=== PATIENT | male | born 1965 ===

== ENCOUNTER 2023-06-01 10:53 | Day surgery (SDC) | payer BC ==
[2023-05-26 11:46] VITALS: BMI 28.1
[~2023-06-01 10:53] MED LIST: LIDOCAINE 1% (10MG/ML) FOR IV START INTRADERMA PRN
[2023-06-01] MEDS: LACTATED RINGERS 1,000 ML IV SCH ×2 (12:11→13:16)
[2023-06-01 12:14] VITALS: TEMP 97.1
[2023-06-01 12:24] LABS: Glucose,Whole Blood 92 mg/dL (70-110)
[2023-06-01] MEDS ORDERED: PROPOFOL 10 MG/ML 20 ML VIAL IV ONE (13:13)
--- NOTE | 2023-06-01 13:35 | P.PCN ---
Date of Procedure: 06/01/23 Procedure(s) Performed: BRIEF HISTORY: Patient is a 58-year-old pleasant white male scheduled for an elective colonoscopy as a part of evaluation of prior history of colon polyps. PROCEDURE PERFORMED: Colonoscopy. PREOPERATIVE DIAGNOSIS: History of colon polyps. IV sedation per Anesthesia. PROCEDURE: After informed consent was obtained, the patient, was brought into the endoscopy unit. IV sedation was administered by Anesthesia under continuous monitoring. Digital rectal examination was normal. Initially the Olympus CF-160 flexible video colonoscope was then inserted in the rectum, gradually advanced into the right colon without any difficulty. Despite multiple attempts I was not able to advance the scope into the base of the cecum but part of the cecum was visualized and appeared normal. Careful examination was performed as the scope was gradually being withdrawn. Ileocecal valve was Prep was excellent. Mucosa of the ascending colon, transverse colon, descending colon, sigmoid colon, and rectum appeared normal. Scattered sigmoid diverticulosis. Retroflexion was performed in the rectum and no lesions were seen. The patient tolerated the procedure well. IMPRESSION: Normal-appearing colon from rectum to cecum with no evidence of colorectal neoplasia. Scattered similar diverticulosis. RECOMMENDATIONS: Findings of this examination were discussed with the patient as well as his family. He was advised to have a repeat screening colonoscopy in 10 years..
[2023-06-01 13:54] VITALS: BP 124/77; PULSE 61; RESP 20
== END 2023-06-01 14:09 ==
LOC: ORWHC2ENDO 10:53
PROVIDERS: ATTEND Internal Medicine Gastroenterology
DX: Z12.11 Encounter for screening for malignant neoplasm of colon (principal); K57.30 Diverticulosis of large intestine without perforation or abscess without bleeding; J45.909 Unspecified asthma, uncomplicated; Z86.010 Personal history of colon polyps; Z79.899 Other long term (current) drug therapy; Z79.82 Long term (current) use of aspirin
CPT/HCPCS: 45378; J2704